=== PATIENT | female | born 1965 | race Caucasian/White ===

== ENCOUNTER 2022-07-10 04:15 | Day surgery (SDC) | payer OTHER ==
[2022-07-09 10:27] VITALS: BMI 24.1
[2022-07-10 11:36] VITALS: PULSE 59; RESP 16
[2022-07-10] MEDS ORDERED: LIDOCAINE HCL 1%, 10 MG/ML (20ML VIAL) ONE (14:27)
[2022-07-10 15:50] VITALS: BP 89/50; TEMP 97.3
== END 2022-07-10 15:50 | disposition home or self-care (01) ==
LOC: JASU-SURG 04:15
PROVIDERS: ATTEND Surgery
DX: Z53.8 Procedure and treatment not carried out for other reasons (principal)
CPT/HCPCS: 82962

== ENCOUNTER 2022-07-24 04:27 | Day surgery (SDC) | payer OTHER ==
[2022-07-23 11:34] VITALS: BMI 24.1
[2022-07-24] MEDS ORDERED: LIDOCAINE HCL 1%, 10 MG/ML (20ML VIAL) ONE (07:28)
[2022-07-24] MEDS ORDERED: MIDAZOLAM HCL 2 MG/2 ML SINGLE DOSE VIAL ONE (09:33)
[2022-07-24] MEDS ORDERED: ceFAZolin SODIUM 1 GM VIAL IVPB ONE (10:30)
[2022-07-24] MEDS ORDERED: LIDOCAINE HCL 1%, 10 MG/ML (20ML VIAL) INF ONE ×2 (10:36)
[2022-07-24] MEDS ORDERED: PROPOFOL 20 ML ONE ×2 (10:43)
[2022-07-24] MEDS ORDERED: oxyCODONE HCL 5 MG TABLET PO PRN (11:14)
[2022-07-24] MEDS ORDERED: ONDANSETRON 4 MG/2 ML VIAL IVPUSH PRN (11:14)
[2022-07-24] MEDS ORDERED: ACETAMINOPHEN 325 MG TABLET (FP) PO PRN (11:14)
[2022-07-24] MEDS ORDERED: LACTATED RINGERS SOLUTION 1,000 ML IV SCH (11:15)
[2022-07-24 12:07] VITALS: TEMP 97.9
[2022-07-24 12:10] VITALS: RESP 16
[2022-07-24 13:00] VITALS: BP 110/55; PULSE 70
== END 2022-07-24 13:10 | disposition home or self-care (01) ==
LOC: JASU-SURG 04:27
PROVIDERS: ATTEND Surgery
PROC: 0HBT0ZX Excision of Right Breast, Open Approach, Diagnostic (ICD-10-PCS; principal; 2022-07-24 09:00)
DX: N60.11 Diffuse cystic mastopathy of right breast (principal); N60.81 Other benign mammary dysplasias of right breast
CPT/HCPCS: 19281; 76098-TC-FY; 82962; 88307-TC; 94760